=== PATIENT | female | born 1960 | race Caucasian/White ===

== ENCOUNTER 2018-01-02 13:18 | Emergency (ER) | payer OTHER | END 2018-01-02 13:39 | disposition home or self-care (01) | LOC: E/R 13:18 | DX: R21 Rash and other nonspecific skin eruption (principal) | CPT/HCPCS: 99284; Z7502 ==

== ENCOUNTER 2018-03-10 19:32 | Emergency (ER) | payer SELFPAY, OTHER, MEDICARE | END 2018-03-10 21:45 | disposition left against medical advice (07) | LOC: FTE 19:32 | DX: Z53.21 Procedure and treatment not carried out due to patient leaving prior to being seen by health care provider (principal) ==

== ENCOUNTER 2018-03-11 10:28 | Emergency (ER) | payer MEDICARE, OTHER ==
[2018-03-11] MEDS: DIPHENHYDRAMINE 50 MG INJ IM (10:55)
[2018-03-11] MEDS: predniSONE 50 MG TAB PO (10:57)
== END 2018-03-11 11:42 | disposition home or self-care (01) ==
LOC: FTE 10:28
DX: L30.9 Dermatitis, unspecified (principal)
CPT/HCPCS: 96372; 99284-25